=== PATIENT | male | born 1985 | race Hispanic/Latino ===

== ENCOUNTER 2016-05-15 03:56 | Emergency (ER) | payer MEDICAID ==
[2016-05-15 04:00] VITALS: TEMP 98.7
--- NOTE | 2016-05-15 04:39 | ED PDOC ---
HPI: Chest Pain Time Seen by Provider: 05/15/16 04:26 Chief Complaint (Nursing): Chest Pain Chief Complaint (Provider): Chest Pain History Per: Patient History/Exam Limitations: no limitations Onset/Duration Of Symptoms: Hrs (x1 hour ago), Intermittent Episodes, Sudden Onset Current Symptoms Are (Timing): Still Present Severity: Moderate Quality: Sharp Associated Symptoms: Diaphoresis. denies: Nausea, Syncope, Other ( (-) neck/ back pain, (-) vomiting, (-) fever) Exacerbating Factors: None Additional Complaint(s): Ahmet Springer is a 31 year old male, with no pertinent past medical history, who presents to the emergency department for the evaluation of intermittent chest pain, that the patient began experiencing 1 hour ago. Patient states a sharp pain suddenly began while lying in bed, lasted for ten to twenty minutes straight, is centralized in the chest and does not radiate elsewhere. He reports taking x5 ASA (81mg) prior to arrival; however, it only provided mild relief, prompting his visit to the ED. Pain is currently described as a soreness and is sensitive to the touch. Associated diaphoresis and epigastric abdominal pain are also currently present. Denies neck or back pain, a cough, fever, nausea, or vomiting. Of note, patient reports similar symptoms briefly occurring in the past. PMD: none specified Past Medical History Reviewed: Historical Data, Nursing Documentation, Vital Signs Vital Signs: Last Vital Signs Temp 98.7 F 05/15/16 03:57 Pulse 63 05/15/16 06:42 Resp 14 05/15/16 06:36 BP 130/82 05/15/16 06:36 Pulse Ox 100 05/15/16 06:42 - Medical History PMH: No Chronic Diseases - Surgical History Surgical History: No Surg Hx - Family History Family History: States: [place] (grandfather/grandmother), CAD (grandfather/ grandmother) - Social History Current smoker - smoking cessation education provided: No Ex-Smoker (has not smoked in the last 12 months): No Alcohol: Social Drugs: Cannabis, Cocaine - Home Medications Home Medications: Ambulatory Orders Medication Instructions Recorded Famotidine [Pepcid] 20 mg PO DAILY #14 tab 05/15/16 Ibuprofen [Motrin] 600 mg PO Q6 PRN #20 tab 05/15/16 - Allergies Allergies/Adverse Reactions: Allergies Allergy/AdvReac Type Severity Reaction Status Date / Time No Known Allergies Allergy Verified 05/15/16 03:57 NESS Risk Score for UA/NSTEMI - NESS Risk Score Age > 64: NO 3 or more CAD Risk Factors: NO Known CAD (Stenosis greater than 50%): NO Aspirin use in past 7 days: NO Severe Angina: NO EKG ST changes greater than 0.5mm: NO Positive Cardiac Marker: NO NESS Score: 0 Risk %: 5% Wells Criteria for PE - Wells Criteria for Pulmonary Embolism Clinical Signs and Symptoms of DVT: No P.E is #1 Diagnosis, or Equally Likely: No Heart Rate >100: No Immobilization at least 3 days;Surgery previous 4 weeks: No Previous, objectively diagnosed PE or DVT: No Hemoptysis: No Malignancy w/treatment within 6 months, or palliative: No Total Score: 0 Review of Systems ROS Statement: Except As Marked, All Systems Reviewed And Found Negative Constitutional: Positive for: Sweats. Negative for: Fever Cardiovascular: Positive for: Chest Pain Respiratory: Negative for: Cough Gastrointestinal: Positive for: Abdominal Pain (epigastric). Negative for: Nausea, Vomiting Musculoskeletal: Negative for: Neck Pain, Back Pain Physical Exam - Reviewed Nursing Documentation Reviewed: Yes Vital Signs Reviewed: Yes - Physical Exam Appears: Positive for: Non-toxic, No Acute Distress Head Exam: Positive for: ATRAUMATIC, NORMOCEPHALIC Skin: Positive for: Normal Color, Warm, Dry Eye Exam: Positive for: Normal appearance, EOMI ENT: Positive for: Normal ENT Inspection. Negative for: Pharyngeal Erythema, Tonsillar Exudate, Tonsillar Swelling Neck: Positive for: Normal, Painless ROM Cardiovascular/Chest: Positive for: Regular Rate, Rhythm. Negative for: Chest Non Tender ((+) anterior chest wall tenderness), Edema, Murmur Respiratory: Positive for: Normal Breath Sounds. Negative for: Rales, Wheezing , Respiratory Distress Gastrointestinal/Abdominal: Positive for: Normal Exam, Soft. Negative for: Tenderness, Guarding Back: Positive for: Normal Inspection Extremity: Positive for: Normal ROM. Negative for: Tenderness, Swelling Neurologic/Psych: Positive for: Alert, Oriented - Laboratory Results Result Diagrams: 05/15/16 04:41 05/15/16 04:41 - ECG ECG Rhythm: Positive for: Normal QRS, Normal ST Segment, Sinus Rhythm Rate: 63 O2 Sat by Pulse Oximetry: 100 (RA) Pulse Ox Interpretation: Normal - Radiology X-Ray: Interpreted by Me, Viewed By Me X-Ray Interpretation: No Acute Disease - Progress Re-evaluation Time: 06:30 Condition: Re-examined, Improved Medical Decision Making Medical Decision Makin:26 Initial Impression: chest pain Differential Diagnoses include, but are not limited to ACS, Pulmonary Embolism, Costochondritis, PTX, and Mediastinitis. Initial Plan: * EKG * CXR * CBC * BMP * Troponin I * D Dimer * Morphine 4mg IVP * Reevaluation EKG read, rate at 63. Normal Sinus Rhythm, Normal QRS, Normal ST Segments. Scribe Attestation: Documented by Elijah Reynoso, acting as a scribe for Ricky Herrera MD. Provider Scribe Attestation: All medical record entries made by the Scribe were at my direction and personally dictated by me. I have reviewed the chart and agree that the record accurately reflects my personal performance of the history, physical exam, medical decision making, and the department course for this patient. I have also personally directed, reviewed, and agree with the discharge instructions and disposition. Disposition - Clinical Impression Clinical Impression: Chest wall pain, Chest pain - Patient ED Disposition Is Patient to be Admitted: No Doctor Will See Patient In The: Office Counseled Patient/Family Regarding: Studies Performed, Diagnosis, Need For Followup - Disposition Referrals: [facility] [Outside] Disposition: Routine/Home Disposition Time: 06:30 Condition: GOOD Additional Instructions: Return for worsening. Follow up with your PCP in 2-3 days. Prescriptions: Ibuprofen [Motrin] 600 mg PO Q6 PRN #20 tab PRN Reason: Pain, Moderate (4-7) Famotidine [Pepcid] 20 mg PO DAILY #14 tab Instructions: Chest Pain (ED)
[2016-05-15 04:56] LABS: BASO % 0.3 % (0.0-2.0); EOS # 0.1 K/uL (0.0-0.7); EOS % 0.7 % (0.0-4.0); HEMATOCRIT 47.2 % (35.0-51.0); LYMPH % 17.8 % (20.0-40.0); MEAN CELL VOLUME 90.1 fl (80.0-94.0); MEAN CORPUSCULAR HGB CONC 33.4 g/dL (33.0-37.0); MEAN PLATELET VOLUME 8.1 fl (7.2-11.7); MONO # 1.1 K/uL (0.0-0.8); MONO % 6.6 % (0.0-10.0); NEUT # 12.4 K/uL (1.8-7.0); NEUT % 74.6 % (50.0-75.0); NRBC % 0.1 % (0.0-0.0); RED CELL DISTRIBUTION WIDTH 13.9 % (11.5-14.5); WHITE BLOOD COUNT 16.6 K/uL (4.8-10.8)
[2016-05-15 04:59] LABS: BLOOD UREA NITROGEN 11 mg/dl (9-20); CALCIUM 10.1 mg/dL (8.4-10.2); CARBON DIOXIDE 23 mmol/L (22-30); CHLORIDE 109 mmol/L (98-107); GFR AFRICAN-AMERICAN > 60; GLUCOSE,RANDOM 97 mg/dL (75-110); SODIUM 147 mmol/l (132-148)
[2016-05-15 05:16] VITALS: PULSE 63
[2016-05-15 06:37] VITALS: BP 130/82; RESP 14
[2016-05-15 06:43] VITALS: O2SAT 100
--- NOTE | 2016-05-15 09:29 | RAD ---
PROCEDURE: CHEST RADIOGRAPH, 1 VIEW HISTORY: chest pain COMPARISON: None available. FINDINGS: LUNGS: Clear. PLEURA: No pneumothorax or pleural fluid seen. CARDIOVASCULAR: Normal. OSSEOUS STRUCTURES: No significant abnormalities. VISUALIZED UPPER ABDOMEN: Normal. OTHER FINDINGS: None. IMPRESSION: No active disease.
--- NOTE | 2016-05-15 15:01 | CARD ---
APPROVED REPORT EKG Measurement Heart [id number] [id number] <Conclusion> Normal sinus rhythm Normal ECG
== END 2016-05-15 06:46 | disposition home or self-care (01) ==
LOC: H.ER 03:56
DX: R07.9 Chest pain, unspecified (principal); Z87.891 Personal history of nicotine dependence